=== PATIENT | female | born 1990 | race Two or more races ===

== ENCOUNTER 2019-04-19 08:17 | Emergency (ER) | payer OTHER ==
[~2019-04-19] VITALS: Ht 165.1 cm; Wt 72.6 kg
[2019-04-19 08:20] VITALS: BP 119/69
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
--- NOTE | 2019-04-19 08:27 | NUR ---
ED Nurse Note: NOTED MINOR ABRASIONS ON LEFT UPPER ARM. NO ACTIVE BLEEDING.
[2019-04-19] MEDS ORDERED: Isovue-300 100ml vial INJ PRN (08:30)
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
[2019-04-19] MEDS ORDERED: Morphine Sulfate 2mg/ml Inj(IV/IM USE ONLY) IVP ONE (08:45)
[2019-04-19 09:06] LABS: BASOPHILS % (AUTO) 1.2 % (0.0-2.0); EOSINOPHILS % (AUTO) 5.5 % (0.0-3.0); HEMATOCRIT 45.3 % (37.0-47.0); LYMPHOCYTES % (AUTO) 36.6 % (20.0-45.0); MEAN CORPUSCULAR VOLUME 90 FL (80-99); MONOCYTES % (AUTO) 4.9 % (1.0-10.0); NEUTROPHILS % (AUTO) 51.8 % (45.0-75.0); PLATELET COUNT 268 K/UL (150-450); RED BLOOD COUNT 5.02 M/UL (4.20-5.40); RED CELL DISTRIBUTION WIDTH 12.4 % (11.6-14.8); WHITE BLOOD COUNT 8.5 K/UL (4.8-10.8)
--- NOTE | 2019-04-19 09:07 | NUR ---
ED Nurse Note: URINE SPECIMEN SENT.
[2019-04-19 09:14] LABS: ANION GAP 10 mmol/L (5-15); BLOOD UREA NITROGEN 9 mg/dL (7-18); CARBON DIOXIDE 25 MMOL/L (21-32); CHLORIDE 105 MMOL/L (98-107); CREATININE 0.7 MG/DL (0.55-1.30); POTASSIUM 3.8 MMOL/L (3.5-5.1); SODIUM 140 MMOL/L (136-145)
--- NOTE | 2019-04-19 09:15 | NUR ---
ED Nurse Note: PT TAKEN TO CT VIA VINOD. VSS
[2019-04-19 09:19] LABS: ALANINE AMINOTRANSFERASE 17 U/L (12-78); ALBUMIN 3.7 G/DL (3.4-5.0); ALBUMIN/GLOBULIN RATIO 0.9 (1.0-2.7); ALKALINE PHOSPHATASE 84 U/L (46-116); ASPARTATE AMINO TRANSFERASE 19 U/L (15-37); BILIRUBIN,TOTAL 0.4 MG/DL (0.2-1.0)
[2019-04-19 09:21] LABS: INR 0.9 (0.9-1.1)
--- NOTE | 2019-04-19 10:01 | NUR ---
ED Nurse Note: PT CAME BACK FROM CT. VSS
[2019-04-19 10:13] VITALS: BP 139/88
--- NOTE | 2019-04-19 10:26 | NUR ---
Note kishor in EDM - 04/19/19 at 1027 by MARIELY ED Nurse Note: [employer] AT THE BED SIDE.
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
--- NOTE | 2019-04-19 10:35 | NUR ---
ED Nurse Note: DR TRAVIS REMOVED THE HARD C-COLLAR.
--- NOTE | 2019-04-19 11:22 | Diagnostic Imaging Report ---
Indication: Chest and abdominal pain. Back pain. Trauma Technique: Continuous helical transaxial imaging of the chest, abdomen and pelvis was obtained from the lung bases to the pubic symphysis during intravenous contrast administration. Multiple phases of enhancement obtained. Coronal 2-D reformats were also obtained. Study obtained in a Siemens sensation [address] Automatic Exposure Control was utilized. Total Dose length Product (DLP): 1864.[address] Dose Index Volume (CTDIvol): 20.02,19.35 mGy Comparison: None Findings: Mild basal atelectasis demonstrated. There is no evidence of a contusion, hematoma or pleural effusion/hemothorax. The mediastinum appears clear. No definite osseous injury identified on this exam. Solid organ enhancement is homogeneous in the abdomen. There is an incidental nonobstructive stone measuring about 3 mm within the left kidney. There is a suggestion of a small right renal cyst. There is no free fluid. No obvious injury identified with regard to the bowel. The bladder is moderately distended. Appendix is normal. IMPRESSION: No evidence of acute injury. The CT scanner at [facility] is accredited by the [employer] and the scans are performed using dose optimization techniques as appropriate to a performed exam including Automatic Exposure control.
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
--- NOTE | 2019-04-19 11:27 | Diagnostic Imaging Report ---
Indication: Neck pain. Technique: Continuous helical imaging of the cervical spine was obtained transaxially from the skull base to the upper thoracic spine. 2-D coronal and sagittal reformatted images were obtained. Automatic Exposure Control was utilized. Total Dose length Product (DLP): 433.[address] Dose Index Volume (CTDIvol): 20.35 mGy Comparison: None Findings: There is no evidence of an acute fracture or malalignment. Atlantoaxial alignment appears normal. Height and configuration of the vertebral bodies and intervertebral discs are within normal limits. Uncovertebral joints and facets are unremarkable. There is no soft tissue swelling. Impression: Negative cervical spine CT The CT scanner at [facility] is accredited by the [employer] and the scans are performed using dose optimization techniques as appropriate to a performed exam including Automatic Exposure control.
--- NOTE | 2019-04-19 11:32 | Diagnostic Imaging Report ---
Indication: Back pain Technique: Continuous helical transaxial imaging of the lumbar spine was obtained. . Coronal 2-D reformats were also obtained. Study obtained in a Siemens sensation [address] Total Dose length Product (DLP): [address] Dose Index Volume (CTDIvol): 8.11, 0.15, 81.11, 20.02, 19.35 mGy Comparison: None Findings: There is no evidence of an acute fracture or malalignment. Height and configuration of the vertebral bodies and intervertebral discs are within normal limits. The facets are unremarkable. There is no soft tissue swelling. Impression: Negative lumbar spine CT The CT scanner at [facility] is accredited by the [employer] and the scans are performed using dose optimization techniques as appropriate to a performed exam including Automatic Exposure control.
[2019-04-19] MEDS ORDERED: HYDROcodone/Acetamin 5/325 tab ORAL ONE (11:45)
[2019-04-19] MEDS ORDERED: Ketorolac 30mg Inj IV ONE (11:45)
[2019-04-19] MEDS ORDERED: IBUPROFEN600 MG ORAL (12:15)
[2019-04-19] MEDS ORDERED: NORCO 5-325 TA1 EACH ORAL (12:15)
[2019-04-19 12:25] VITALS: BP 102/59
--- NOTE | 2019-04-19 12:25 | NUR ---
ER DISCHARGE NOTE: Patient is cleared to be discharged per ERMD, pt is aox4, on room air, with stable vital signs. pt was given dc and prescription instructions, pt was able to verbalize understanding, pt id band and iv site removed without complications. pt is able to ambulate with steady gait. pt took all belongings.
--- NOTE | 2019-04-20 18:26 | Cardiology Report ---
APPROVED REPORT EKG Measurement Heart [id number] Normal sinus rhythm Normal ECG
== END 2019-04-19 12:25 | disposition home or self-care (01) ==
LOC: EDBD 08:17 → EMR 09:02
DX: M54.2 Cervicalgia (principal); M54.9 Dorsalgia, unspecified; R07.9 Chest pain, unspecified; V44.5XXA Car driver injured in collision with heavy transport vehicle or bus in traffic accident, initial encounter; Y92.410 Unspecified street and highway as the place of occurrence of the external cause; M79.605 Pain in left leg
CPT/HCPCS: 36415; 70450; 71260; 72125; 72131; 74177; 80053; 81025; 84703; 85025; 85610; 85730; 86850; 86900; 86901; 93005; 96374; 96375; 99284; J1885; J2270; Q9967